=== PATIENT | male | born 1990 | race Caucasian/White ===

== ENCOUNTER 2017-08-01 00:54 | Emergency (ER) | payer OTHER ==
[~2017-08-01] VITALS: Ht 180.3 cm; Wt 98.0 kg
[2017-08-01 01:12] VITALS: BP 143/83; PULSE 84; RESP 20; TEMP 98.4; O2SAT 98
--- NOTE | 2017-08-01 01:13 | PD ---
HPI Chief Complaint: ENT Complaint Time Seen by Provider: 01:10 Travel History International Travel<30 days: No Contact w/Intl Traveler<30days: No Traveled to known affect area: No History of Present Illness HPI 26-year-old male presents emergency department for evaluation of sore throat 2 days. Patient states it is severe pain, difficult to swallow. He is able to control her secretions in his airway remains patent. Denies any fever chills. States he has had some mild sinus congestion. Has no other symptoms to report. FORMERLY [facility] Past Medical History Medical History: Denies Significant Hx Social History Tobacco Use: No Allergies-Medications (Allergen,Severity, Reaction): Coded Allergies: No Known Allergies (Unverified , 08/01/17) Reported Meds & Prescriptions Reported Meds & Active Scripts Active Prednisone 50 Mg Tab 50 Mg PO DAILY 5 Days Amoxicillin 875 Mg Tab 875 Mg PO BID 10 Days Review of Systems Except as stated in HPI: all other systems reviewed are Neg Physical Exam Narrative GENERAL: Well-nourished, well-developed male patient in no acute distress SKIN: Focused skin assessment warm/dry. HEAD: Normocephalic. EYES: No scleral icterus. No injection or drainage. ENT: Mucosa pink and moist. Pharynx with significant erythema, mild edema, no exudate. No uvular edema. No uvular, palatal, or tonsillar deviation. Airway patent. Nasal turbinates appear normal without nasal blood, purulent drainage or septal hematoma. NECK: Supple, trachea midline. No JVD or lymphadenopathy. CARDIOVASCULAR: Regular rate and rhythm without murmurs, gallops, or rubs. RESPIRATORY: Breath sounds equal bilaterally. No accessory muscle use. GASTROINTESTINAL: Abdomen soft, non-tender, nondistended. MUSCULOSKELETAL: No cyanosis, or edema. BACK: Nontender without obvious deformity. No CVA tenderness. Data Data Last Documented VS Orders Orders Group A Rapid Strep Screen (08/01/17 01:13) Influenzae A/B Antigen (08/01/17 01:13) Dexamethasone Inj (Decadron Inj) (08/01/17 01:15) Strep Culture (Group A) (08/01/17 01:15) Ed Discharge Order (08/01/17 02:15) MDM Medical Decision Making Medical Screen Exam Complete: Yes Emergency Medical Condition: Yes Medical Record Reviewed: Yes Differential Diagnosis Pharyngitis strep versus viral versus mono versus tonsillitis versus common cold versus allergies Narrative Course 26-year-old male presents emergency department for evaluation of sore throat. Physical exam is reassuring. Patient appears overall well. Vital signs are stable. Rapid strep screen is negative but will be sent for culture. Influenza screen is negative. Patient will be discharged home to follow-up with primary care provider. He agrees to return immediately with acute worsening symptoms. Diagnosis Primary Impression: Pharyngitis, acute Qualified Codes: J02.9 - Acute pharyngitis, unspecified Referrals: Primary Care Physician Patient Instructions: General Instructions, Pharyngitis (ED) Departure Forms: Tests/Procedures, Work Release Enter return to work date: Aug 02, 2017 Additional Instructions: Warm saltwater gargles may help to alleviate symptoms Follow-up with a primary care provider Tylenol or ibuprofen as directed on the package as needed for fever and/or pain Return immediately to the emergency department with any acute worsening symptoms Med/Other Pt SpecificInfo: Prescription(s) given Scripts Prednisone (Prednisone) 50 Mg Tab 50 MG PO DAILY for 5 Days, #5 TAB 0 Refills Prov: Alexandra Alanis 08/01/17 Amoxicillin (Amoxicillin) 875 Mg Tab 875 MG PO BID for Infection for 10 Days, #20 TAB 0 Refills Prov: Alexandra Alanis 08/01/17 Disposition: 01 DISCHARGE HOME Condition: Stable Alexandra Alanis Aug 01, 2017 01:13
[2017-08-01] MEDS ORDERED: DEXAMETHASONE SOD PHOS 4 MG/ML VIAL IM ONE (01:15)
[2017-08-01] MEDS ORDERED: PRED50 PO (02:18)
[2017-08-01] MEDS ORDERED: AMOX875T PO (02:18)
== END 2017-08-01 02:58 | disposition home or self-care (01) ==
LOC: NEPD 00:54
DX: J02.9 Acute pharyngitis, unspecified (principal); B95.4 Other streptococcus as the cause of diseases classified elsewhere
CPT/HCPCS: 87081; 87804; 87880; 96372; 99283; J1100